=== PATIENT | male | born 1960 | race Hispanic/Latino ===

== ENCOUNTER 2017-12-30 16:53 | Emergency (ER) | payer BC ==
[2017-12-30 17:12] VITALS: BP 163/95; PULSE 81; RESP 18; TEMP 98.4; O2SAT 99; BMI 41.8
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
== END 2017-12-30 17:38 | disposition home or self-care (01) ==
LOC: ED 16:53
DX: J70.5 Respiratory conditions due to smoke inhalation (principal); I10 Essential (primary) hypertension; E78.5 Hyperlipidemia, unspecified; F17.200 Nicotine dependence, unspecified, uncomplicated